=== PATIENT | male | born 1985 | race Caucasian/White ===

== ENCOUNTER 2017-08-06 08:58 | Emergency (ER) | payer BC ==
[2017-08-06 09:05] VITALS: BP 142/82
[2017-08-06] MEDS ORDERED: IBUPROFEN 800 MG TABLET PO ONE (09:15)
[2017-08-06] MEDS ORDERED: PENICILLIN V POTASSIUM 500 MG TABLET PO ONE (09:15)
--- NOTE | 2017-08-06 09:25 | ER Document Report ---
HPI - HPI Patient complains to provider of: toothache Onset: Yesterday Onset/Duration: Sudden Quality of pain: Achy Pain Level: 5 Context: Patient states that he broke his tooth last night and complains of dental pain since then. Patient denies any facial swelling or fever. Associated Symptoms: Other - Dental pain. denies: Fever Exacerbated by: Denies Relieved by: Denies Similar symptoms previously: No Recently seen / treated by doctor: No - ROS ROS below otherwise negative: Yes Systems Reviewed and Negative: Yes All other systems reviewed and negative - CONSTITUTIONAL Constitutional: DENIES: Fever - EENT Notes: Dental pain - GASTROINTESTINAL Gastrointestinal: DENIES: Nausea, Patient vomiting - DERM Skin Color: Normal Skin Problems: None Past Medical History - General Information source: Patient - Social History Smoking Status: Current Every Day Smoker Smoking Education Provided: Yes Frequency of alcohol use: None Drug Abuse: None Occupation: Foodservice Family History: Reviewed & Not Pertinent - Medical History Medical History: Negative Surgical Hx: Negative Vertical Provider Document - CONSTITUTIONAL Agree With Documented VS: Yes Exam Limitations: No Limitations General Appearance: WD/WN, No Apparent Distress - INFECTION CONTROL TRAVEL OUTSIDE OF THE [place] IN LAST 30 DAYS: No - HEENT HEENT: Atraumatic, Normocephalic Mouth Diagram: 1 - Dental fracture, tenderness, no gingival inflammation, no trismus - NECK Neck: Normal Inspection, Supple. negative: Lymphadenopathy-Left, Lymphadenopathy-Right - RESPIRATORY Respiratory: Breath Sounds Normal, No Respiratory Distress O2 Sat by Pulse Oximetry: 97 - CARDIOVASCULAR Cardiovascular: Regular Rate, Regular Rhythm, No Murmur - MUSCULOSKELETAL/EXTREMETIES Musculoskeletal/Extremeties: MAEW - NEURO Level of Consciousness: Awake, Alert, Appropriate Motor/Sensory: No Motor Deficit - DERM Integumentary: Warm, Dry, No Rash Course - Re-evaluation Re-evalutation: 08/06/17 09:16 The patient has been informed that they may have pre-hypertension or hypertension based on a blood pressure reading in the emergency department. I recommend that patient call the primary care provider listed on their discharge instructions or a physician of their choice by this week to arrange follow-up for further evaluation of possible pre-hypertension or hypertension. 08/06/17 09:26 Controlled substance database reviewed - Vital Signs Vital signs: Temp Pulse Resp BP Pulse Ox 97.3 F 88 16 142/82 H 97 08/06/17 09:02 08/06/17 09:02 08/06/17 09:02 08/06/17 09:02 08/06/17 09:02 Discharge - Discharge Clinical Impression: Broken tooth Qualifiers: Encounter type: initial encounter Fracture type: open Qualified Code(s): S02.5XXB - Fracture of tooth (traumatic), initial encounter for open fracture Condition: Stable Disposition: HOME, SELF-CARE Instructions: Oral Narcotic Medication ([facility]), Penicillin V K ([facility]), Toothache ( [facility]) Additional Instructions: Return immediately for any new or worsening symptoms Followup with your primary care provider, call tomorrow to make a followup appointment Follow-up with a dental care provider for further evaluation Prescriptions: Acetaminophen with Codeine [Acetaminophen-Cod #3 Tablet] 1 each PO Q6 PRN #12 tablet PRN Reason: Naproxen [Naprosyn 250 Nmg Tablet] 1 tab PO BID #14 tablet Penicillin V Potassium [Penicillin Vk 500 mg Tablet] 500 mg PO BID #20 tablet Forms: Elevated Blood Pressure, Smoking Cessation Education Referrals: [facility] [Provider Group] - Follow up as needed [facility] [Provider Group] - Follow up as needed
== END 2017-08-06 09:35 | disposition home or self-care (01) ==
LOC: ER 08:58
DX: S02.5XXB Fracture of tooth (traumatic), initial encounter for open fracture (principal); X58.XXXA Exposure to other specified factors, initial encounter; F17.200 Nicotine dependence, unspecified, uncomplicated
CPT/HCPCS: 99282

== ENCOUNTER 2017-10-07 03:08 | Emergency (ER) | payer BC ==
[2017-10-07 03:19] VITALS: BP 145/83
--- NOTE | 2017-10-07 03:42 | ER Document Report ---
ED General - General Chief Complaint: Ear Pain Stated Complaint: RIGHT EAR PAIN Time Seen by Provider: 10/07/17 03:28 Notes: Patient is a 32-year-old male who presents with complaint of right ear pain. Patient says that he has had some congestion from seasonal allergies. Patient does not take any medication for this. Some slight swelling pain in his right ear. He said earlier today he did use a Q-tip to try canals years. He is unsure if this is related to some the pain is having now. He said no bloody discharge or drainage from his ears. No fevers. No recent infections. No other complaints at this time. TRAVEL OUTSIDE OF THE [place] IN LAST 30 DAYS: No - Related Data Allergies/Adverse Reactions: No Known Allergies Allergy (Verified 08/06/17 08:59) Past Medical History - Social History Smoking Status: Current Some Day Smoker Chew tobacco use (# tins/day): No Frequency of alcohol use: None Drug Abuse: None Family History: Reviewed & Not Pertinent Patient has suicidal ideation: No Patient has homicidal ideation: No Renal/ Medical History: Denies: Hx Peritoneal Dialysis Review of Systems - Review of Systems Notes: My Normal Review Basic REVIEW OF SYSTEMS: CONSTITUTIONAL : Denies fever, chills, or sweats. Denies recent illness. EENT: Right ear pain RESPIRATORY: Denies cough, cold, or chest congestion. Denies shortness of breath, difficulty breathing, or wheezing. NEUROLOGICAL: Denies altered mental status or loss of consciousness. Denies headache. No focal weakness or numbness. ALL OTHER SYSTEMS REVIEWED AND NEGATIVE. Physical Exam - Vital signs Vitals: Temp Pulse Resp BP Pulse Ox 97.8 F 97 18 145/83 H 97 10/07/17 03:09 10/07/17 03:09 10/07/17 03:09 10/07/17 03:09 10/07/17 03:09 - Notes Notes: General Appearance: Well nourished, alert, cooperative, no acute distress, no obvious discomfort. Well-appearing. Vitals: reviewed, See vital signs table. Head: no swelling or tenderness to the head Eyes: PERRL, EOMI, Conjuctiva clear Mouth: No decreasd moisture Ears: Patient has cerumen impaction of the right TM. No bloody discharge. I did use a curette to remove some of the wax. Tympanic membrane is not erythematous or red. There is clear fluid behind the TM. Cerumen impaction in the left ear canal. Throat: No tonsillar inflammation, No airway obstruction, No lymphadenopathy Neck: Supple, no neck tenderness, No thyromegaly Neuro: speech clear, oriented x 3, normal affect, responds appropriately to questions. Course - Re-evaluation Re-evalutation: 10/07/17 06:08 The patient's ear pain is twofold. I think part of this because of the congestion that he has been having most likely causing the serous otitis media. I talked him at length about taking [id number] allergy medications with associated nasal decongestion. He said he will do this. I think also some of his ear pain is related to significant cerumen impaction and the fact that is using Q-tips to try canals ear. I informed him to not use Q-tips. I talked about the use of wax dissolving eardrops such as Debrox. Encourage him to use these in conjunction with the other medications have written on his discharge instructions. Informed her that if is still having any symptoms after 5 days and he is to follow-up with ENT for evaluation. Encouraged her return to ER if he has redness or swelling to his ear, fevers, or worsening pain. Patient agrees with plan will be discharged home. Dictation of this chart was performed using voice recognition software; therefore, there may be some unintended grammatical errors. - Vital Signs Vital signs: Temp Pulse Resp BP Pulse Ox 97.8 F 97 18 145/83 H 97 10/07/17 03:09 10/07/17 03:09 10/07/17 03:09 10/07/17 03:09 10/07/17 03:09 Discharge - Discharge Clinical Impression: Ear pain Qualifiers: Laterality: right Qualified Code(s): H92.01 - Otalgia, right ear Cerumen impaction Qualifiers: Laterality: right Qualified Code(s): H61.21 - Impacted cerumen, right ear Serous otitis media Qualifiers: Chronicity: acute Laterality: right Recurrence: not specified as recurrent Qualified Code(s): H65.01 - Acute serous otitis media, right ear Condition: Good Disposition: HOME, SELF-CARE Additional Instructions: You have some ear wax impaction in your ear. Getting rid of this will help with the pressure on your ear rum. Do not use Q-tips. Please buy over the counter wax dissolving drops such as Debrox. Use these twice a day for the next 5 days to help dissolve the wax. You also have some clear fluid behind your ear frequently seen with sinus congestion which may be related to allergies. Please take an over the counter allergy medicine with decongestant such all Claritan-D or Karolyn-D. Please also use Flonase for nasal congestion. You should follow up wiht the ENT physician, Dr. Levine, for reevaluation if your symptoms are not improving after 5 days.
== END 2017-10-07 03:50 | disposition home or self-care (01) ==
LOC: ER 03:08
DX: H65.01 Acute serous otitis media, right ear (principal); J30.2 Other seasonal allergic rhinitis; H61.23 Impacted cerumen, bilateral; H92.01 Otalgia, right ear; F17.200 Nicotine dependence, unspecified, uncomplicated
CPT/HCPCS: 99282